=== PATIENT | female | born 1975 | race Two or more races ===

== ENCOUNTER 2020-07-17 15:33 | Emergency (ER) | payer SELFPAY ==
[~2020-07-17] VITALS: Ht 149.9 cm; Wt 88.5 kg
[2020-07-17 15:42] VITALS: BP 137/88
[2020-07-17] MEDS ORDERED: PRED20TA PO (15:48)
[2020-07-17] MEDS ORDERED: predniSONE 20 MG TABLET ONE (15:49)
--- NOTE | 2020-07-17 15:50 | NUR ---
The patient bibs for c/o seasonal allergies and sore throat. The patient is alert and oriented x4. Denies pain. In room air and denies SOB. Respiration regular and unlabored. Will continue to monitor.
[2020-07-17] MEDS ORDERED: predniSONE 20 MG TABLET PO ONE (16:00)
--- NOTE | 2020-07-17 16:09 | NUR ---
Patient discharged to home in stable condition. Written and verbal after care instructions given. Patient verbalizes understanding of instruction. The patient left ER in stable condition.
== END 2020-07-17 16:09 | disposition home or self-care (01) ==
LOC: ER 15:52
DX: L50.9 Urticaria, unspecified (principal)
CPT/HCPCS: 99283; J7512